=== PATIENT | female | born 1950 | race Caucasian/White ===

== ENCOUNTER 2022-04-19 13:35 | Outpatient (CLI) | payer MEDICARE, BC | END 2022-04-19 13:36 | disposition home or self-care (01) | LOC: SCSMRI 13:35 | PROVIDERS: ATTEND Podiatrist Foot & Ankle Surgery | DX: M76.821 Posterior tibial tendinitis, right leg (principal); R60.0 Localized edema; M25.471 Effusion, right ankle; M76.61 Achilles tendinitis, right leg ==